=== PATIENT | male | born 1975 | race Caucasian/White ===

== ENCOUNTER 2021-11-03 16:00 | Outpatient (RCR) | payer SELFPAY ==
--- NOTE | 2021-09-15 15:10 | HP.PTEVAL ---
Patient's Visit Information LIZETH GUILLEN is a 45 year old M referred to Physical Therapy by KERVIN TERRAZAS with a diagnosis of Lumbar radiculopathy. Date of Evaluation: 09/15/21 Physical Therapist: Mak Pena - Visit Plan Frequency: 1-2 Duration: 6 Weeks Plan: Pt. will be leaving for vacation for 3 weeks. Discussed with pt. to continue with exercises at home and he is to call if he needs anything. Will continue to work on core/back strengthening, LE flexibility, and find direction of preference if possible. May also try lumbar traction as well. Pt. POC will be transferred to another PT at this time. - Subjective Pt. is a 45 y.o. male who has been having back and left leg pain for over a year and the last few months have gotten worse. Pt. PLOF includes history of a back injury years ago but had resolved some. He had x-ray and MRI of his lumbar spine which showed spondylothesis of lumbar spine. Pt. gets intermittent pain down his left leg to his ankle. He denies any falls, change in bowel/bladder function, or unexplained weight loss. Pt. denies any specific position that relieves his pain. He has difficulty with sitting longer than 10 minutes, standing longer than 2 minutes, walking longer than 1/2 mile, occasionally sleeping, lifting things, squatting, housework, yard work, and work activity. Pt. is self employed. His goal with physical therapy is to get rid of his pain. Pt. has never had physical therapy in the past. He rates left lower back at 3/10 currently, at worst 6/10, at best 0/10 and describes the pain as dull, achy, sharp, throbbing, and stabbing. Pt. is currently taking Gabapentin and Predinsone. He lives with his family. Pt. hobbies include hiking, camping, paddle boarding, and playing sports. - Objective Palpation- Mild tenderness over left side of low back. Lumbar AROM flexion x 10- WNL no change in pain in left lower back. extension x 10- moderate restriction and peripheralized symptoms down left leg to knee. SB to left x 10- WNL and increased pain in left side of low back. SB to right x 10- WNL and no change in pain in left side of low back. Lumbar rotations- WNL bilaterally and mild pain in left side of low back with rotation to left. Moderate tight hamstrings bilaterally. Hip PROM- WNL bilaterally. Left LE strength hip flexion 5/5, abduction 5/5, adduction 5/5, extension 4/5, knee flexion 5/5, knee extension 5/5, ankle DF 4+/5, PF 5/5, great toe extension 5/5. Right LE strength hip flexion 5/5, abduction 5/5, adduction 5/5, extension 4/5, knee flexion 5/5, knee extension 5/5, ankle DF 5/5, PF 5/5, great toe extension 5/5. Sensation- WNL bilateral lower extremities. Gait- Pt. ambulates with no gait deviations. Special tests- Straight leg raise [-], Wells leg raise [-], Slump test [-] - Balance/Special Test Scores Oswestry Low Back Score: 19 - Goals Goal 1:: Pt. will be independent with home exercise program. Goal Time Frame: 4-6 Weeks Goal 2:: Pt. will be able to sit for at least 30 minutes with pain < 3/10. Goal Time Frame: 4-6 Weeks Goal 3:: Pt. will be able to walk for at least 30 minutes with pain < 3/10. Goal Time Frame: 4-6 Weeks Goal 4:: Pt. will be able to sleep a full night with no pain. Goal Time Frame: 4-6 Weeks Goal 5:: Pt. will rate pain at worst at 3/10 with ADL's. Goal Time Frame: 4-6 Weeks Goal 6:: Pt. will improve Oswestry Disability score by at least 10% in order to improve ADL's. Goal Time Frame: 4-6 Weeks - Rehabilitation Potential Physical Therapy Diagnosis: Decreased lumbar ROM, core/back strength, LE flexibility, and pain Rehabilitation Potential: Good - Anticipated Interventions Patient/Client Instruction: Educate patient on: Condition, Plan of Care, Benefits of Fitness Program For the Purpose of:: To decrease pain, To increase ROM, To improve ability to perform ADL's, To improve performance and independence with ADL's, To assume or resume ADL's, To improve tolerance to ADL's Therapeutic Exercise to Include: Strength training, Body mechanics, Postural training, Flexibilty training, Active ROM, Dynamic Lumbar Stabilization, Meagan Exercises Comment: Continue with improving core and back strength and LE flexibility exercises. Find direction of preference if able. For the Purpose of:: To decrease pain, To increase ROM, To improve ability to perform ADL's, To improve performance and independence with ADL's, To increase flexibility/ROM, To improve endurance, To improve tolerance to ADL's Manual Therapy Techniques to Include: Mobilization, Passive ROM, Functional dry needling, Soft tissue mobilization For the Purpose of:: To decrease pain, To increase ROM, To improve ability to perform ADL's, To improve performance and independence with ADL's, To assume or resume ADL's, To improve tolerance to ADL's TENS: Yes IF ES: Yes Cryotherapy (ice pack, ice massage): Yes Thermo therapy (hot pack): Yes Pelvic traction prone: Yes For the Purpose of:: To decrease pain, To increase ROM, To improve ability to perform ADL's, To improve performance and independence with ADL's, To increase flexibility/ROM, To assume or resume ADL's, To improve tolerance to ADL's Thank you for the opportunity to evaluate your patient. For Medicare and Medicare HMO plans, please review the plan of care and approve it. It will need to be FAXED BACK to us at [phone] for Medicare purposes. For Medicare only, by signing this I certify the plan of care. Please let me know if there are questions or concerns regarding this plan of care. Physician Signature: Date:
--- NOTE | 2022-02-22 10:48 | HP.PTDCSUM ---
It has been my pleasure to treat LIZETH GUILLEN referred by KERVIN TERRAZAS, with the diagnosis of Lumbar radiculopathy for a total of 2 visit(s). Discharge Date: Please see the following information for a summary of their discharge status. Subjective: LEFT LUMBAR RADICULOPATHY AND LATERAL HIP /LEG. Extended walking ,lifting ,sitting. Seen orthopedic recommended PT % Improvement: 50 Objective/Function: POSTURE: WFL. GAIT: RECIPROCAL PATTERN. MMT: quads/hams/hip 5/5. LUNBAR ROM: FLEXION WFL ,EXTENSION MOD LOSS PAIN. BRANDIN WORSE EXTENSION BETTER WITH FLEXION THUS CORE PROGRESSIIN NEEDS TO BE INTO POSTERIOR TILT Goal 1:: Pt. will be independent with home exercise program. Goal 2:: Pt. will be able to sit for at least 30 minutes with pain < 3/10. Goal 3:: Pt. will be able to walk for at least 30 minutes with pain < 3/10. Goal 4:: Pt. will be able to sleep a full night with no pain. Goal 5:: Pt. will rate pain at worst at 3/10 with ADL's. Goal 6:: Pt. will improve Oswestry Disability score by at least 10% in order to improve ADL's. Plan: HOLD CHART WILL DO EX'S AT HOME. D/C If there are questions or concerns regarding this patient's physical therapy, please feel free to call me at [phone]. Thank you for the referral of this patient. Sincerely, Jerzy Caldera, PT, Cert MDT, OCS Balance/Gait/Functional tests - Balance/Special Test Scores Oswestry Low Back Score: 5
== END 2021-11-03 19:00 | disposition home or self-care (01) ==
LOC: PT 16:00
DX: M54.16 Radiculopathy, lumbar region (principal)
CPT/HCPCS: 97110; 97162

== ENCOUNTER → 2024-06-18 | Outpatient (CLI) | payer SELFPAY ==
--- NOTE | 2024-06-18 16:25 | MRI_ITS ---
PROCEDURE: BRAIN W/WO CONTRAST REASON FOR EXAM: Headaches. TECHNIQUE: Multiplanar, multisequence MRI of the brain with and without intravenous gadolinium-based contrast. CONTRAST: 19 cc Clariscan. COMPARISON: None. FINDINGS: The ventricles are normal in size and midline in position. No evidence of acute hemorrhage or infarction. No extra-axial blood or fluid collections. No abnormal intracranial enhancement. Mild bilateral maxillary sinus mucosal thickening. The mastoid air cells are clear. The orbits are unremarkable. MRI/Brain W/WO Contrast IMPRESSION: No acute intracranial abnormality. Reading Location: [place] [id number]
== END | disposition home or self-care (01) ==
PROVIDERS: PCP Student in an Organized Health Care Education/Training Program; Referring Provider Student in an Organized Health Care Education/Training Program; Visit Provider Student in an Organized Health Care Education/Training Program
DX: R51.9 Headache, unspecified (principal); H53.9 Unspecified visual disturbance
CPT/HCPCS: 70553